=== PATIENT | male | born 1950 | race American Indian/Alaskan Native ===

== ENCOUNTER 2017-02-01 06:08 | Day surgery (SDC) | payer OTHER ==
[2017-02-01 06:35] VITALS: BP 144/98
[2017-02-01] MEDS ORDERED: NACL BACTERIOSTATIC INFILTRATI ONE (06:45)
[2017-02-01] MEDS ORDERED: DIPRIVAN 10 MG/ML IV ONE (06:53)
[2017-02-01] MEDS ORDERED: DILAUDID ONE (06:54)
[2017-02-01] MEDS ORDERED: DECADRON ONE (06:54)
[2017-02-01] MEDS ORDERED: ZOFRAN ONE (06:55)
[2017-02-01] MEDS ORDERED: XYLOCAINE MPF 2% ONE (06:55)
--- NOTE | 2017-02-01 07:11 | Anesthesia Day of Surgery ---
Anesthesia Day of Surgery - Day of Surgery Patient Examined: Yes Patient H&P Reviewed: Yes Patient is NPO: No (Ate at 3:30 AM)
--- NOTE | 2017-02-01 07:11 | Anesthesia Consultation ---
Anesthesia Consult and Med Hx Date of service: 02/01/17 - Airway Anesthetic Teeth Evaluation: Poor ROM Head & Neck: Adequate Mental/Hyoid Distance: Adequate Mallampati Class: Class II Intubation Access Assessment: Probably Good - Pulmonary Exam CTA: Yes - Cardiac Exam Cardiac Exam: RRR - Pulmonary Hx Smoking: Yes Hx Asthma: Yes Hx Sleep Apnea: Yes - Cardiovascular System Hx Hypertension: Yes - Central Nervous System CVA: Yes (?) Hx Back Pain: Yes - Hematic Hx Anemia: Yes - Additional Comments Anesthesia Medical History Comments: Patient denies CVA. Hx of Hep C. Ate full meal at 3:30 AM. No previus anesthesia complications.
[2017-02-01 07:19] LABS: Basophils % (Auto) 0.9 % (0.0-1.8); Eosinophils % (Auto) 1.6 % (0.0-4.3); Hematocrit 37.3 % (35.5-45.6); Hemoglobin 12.1 gm/dl (11.8-15.2); Mean Corpuscular HGB Conc 32 % (32-34); Mean Corpuscular Hemoglobin 29 pg (28-32); Mean Corpuscular Volume 90 fl (84-94); Platelet Count 236 K/mm3 (140-440); Red Blood Count 4.17 M/mm3 (3.65-5.03); White Blood Count 4.9 K/mm3 (4.5-11.0)
[2017-02-01 07:56] LABS: Potassium TNR mmol/L (3.6-5.0); Sodium TNR mmol/L (137-145)
[2017-02-01 07:57] LABS: Anion Gap TNR mmol/L; BUN/Creatinine Ratio TNR; Bilirubin,Total TNR mg/dL (0.1-1.2); Blood Urea Nitrogen TNR mg/dL (9-20); Calcium TNR mg/dL (8.4-10.2); Carbon Dioxide TNR mmol/L (22-30); Chloride TNR mmol/L (98-107); Glucose TNR mg/dL (75-100)
[2017-02-01 07:58] LABS: Alanine Aminotransferase TNR units/L (7-56); Albumin TNR g/dL (3.9-5); Albumin/Globulin Ratio TNR %; Alkaline Phosphatase TNR units/L (35-129); Total Protein TNR g/dL (6.3-8.2)
[2017-02-01] MEDS ORDERED: NACL 0.9% 1000 ML 1,000 ML IV SCH (08:00)
[2017-02-01] MEDS ORDERED: PEPCID IV NR (08:00)
== END 2017-02-01 07:45 ==
LOC: OR 06:08 → EEVIPCON 08:00
PROVIDERS: ATTEND Urology
DX: C61 Malignant neoplasm of prostate (principal); J45.909 Unspecified asthma, uncomplicated; I10 Essential (primary) hypertension; D64.9 Anemia, unspecified; Z53.8 Procedure and treatment not carried out for other reasons; Z87.891 Personal history of nicotine dependence
CPT/HCPCS: 36415; 80053; 85025; J1100; J1170; J2405; J2704